=== PATIENT | female | born 1935 | race Caucasian/White ===

== ENCOUNTER 2018-02-08 11:04 | Outpatient (CLI) | payer OTHER | END 2018-02-08 11:37 | disposition home or self-care (01) | LOC: LAB 11:04 | DX: J20.8 Acute bronchitis due to other specified organisms (principal); J11.1 Influenza due to unidentified influenza virus with other respiratory manifestations ==

== ENCOUNTER 2019-11-27 13:50 | Outpatient (CLI) | payer OTHER | END 2019-11-27 14:09 | disposition home or self-care (01) | LOC: NUCLEAR 13:50 | PROVIDERS: ATTEND Internal Medicine Cardiovascular Disease | DX: M81.8 Other osteoporosis without current pathological fracture (principal) ==